=== PATIENT | male | born 1955 | race American Indian/Alaskan Native ===

== ENCOUNTER 2019-09-02 08:09 | Day surgery (SDC) | payer OTHER ==
[~2019-09-02 08:09] MED LIST: LIDOCAINE MPF (2%) 20 MG/1 ML VIAL 5 ML ONE; SODIUM CHLORIDE 0.9% 1000 ML 1,000 ML IV SCH
--- NOTE | 2019-09-02 09:11 | Anesthesia Consultation ---
Anesthesia Consult and Med Hx Date of service: 09/02/19 - Airway Anesthetic Teeth Evaluation: Good ROM Head & Neck: Adequate Mental/Hyoid Distance: Adequate Mallampati Class: Class I Intubation Access Assessment: Good - Pulmonary Exam CTA: Yes - Cardiac Exam Cardiac Exam: RRR - Pre-Operative Health Status ASA Pre-Surgery Classification: ASA2 Proposed Anesthetic Plan: MAC - Pulmonary Hx Smoking: No Hx Sleep Apnea: No - Cardiovascular System Hx Hypertension: Yes Hx Cardia Arrhythmia: No - Central Nervous System Hx Neuromuscular Disorder: No Hx Back Pain: Yes - Gastrointestinal Hx Gastroesophageal Reflux Disease: Yes - Endocrine Hx Renal Disease: No Hx Thyroid Disease: No - Other Systems Hx Alcohol Use: Yes (Every other day) Hx Obesity: Yes - Additional Comments Anesthesia Medical History Comments: Patient denied previous anesthesia complications
--- NOTE | 2019-09-02 09:12 | Anesthesia Day of Surgery ---
Anesthesia Day of Surgery - Day of Surgery Patient Examined: Yes Patient H&P Reviewed: Yes Patient is NPO: Yes
[2019-09-02] MEDS ORDERED: PROPOFOL 200 MG/20 ML VIAL IV ONE ×2 (09:15)
[2019-09-02] MEDS ORDERED: fentaNYL 100 MCG/2 ML INJ ONE (09:15)
--- NOTE | 2019-09-02 09:51 | Operative Report ---
PROCEDURE: Esophagogastroduodenoscopy with biopsy. INDICATIONS: This is a 64-year-old -[place] gentleman with an underlying history of hypertension, who has been having GERD symptoms. EGD was done for the presence of any significant upper GI pathology. DESCRIPTION OF PROCEDURE: Procedure was done after getting informed consent with MAC anesthesia. Instrument was passed through the hypopharynx into the esophagus, which showed mild to moderate erosive esophagitis. Biopsy was done from the distal esophagus. The stomach showed a moderate hiatal hernia and some gastric erosion in the proximal stomach. Biopsy was done from the gastric antrum, gastric body and angular incisura to rule out for H. pylori and atrophic gastritis. The pylorus is patent. The duodenum in the first and second portion appeared normal. ASSESSMENT: Gastroesophageal reflux disease symptoms, moderate hiatal hernia, mild to moderate erosive esophagitis, gastric erosion, gastritis. PLAN: Treat the patient with PPI. I advised the patient about lifestyle changes because of his hiatal hernia. Have the patient avoid aspirin and aspirin-related products and anticoagulants for the next 4 days, otherwise resume home medication. A colonoscopy will be done as part of colon polyp screening. The patient will be asked to follow up in the office in 1-2 weeks' time. Procedure was done in the GI lab with assistance of the GI lab team, which included INNA Hay, rossy Kirby and with assistance of Anesthesia. JOB# [id number] SONDRA/BRENNA
--- NOTE | 2019-09-02 09:54 | Procedure Note ---
Date of procedure: 09/02/19 Pre-op diagnosis: GERD/Colon Polyp Screening Post-op diagnosis: other (Moderate,Hiatal Hernia/ Mild to Moderate Erosive Esophagitis/Gastric Erosion and Gastritis/ No colon Polyp or Diverticular Disease noted/ Normal Ileal Mucosa/ Minor,Internal Hemorrhoid) Procedure: EGD with Biopsy and Colonoscopy Anesthesia: NOLAN Surgeon: SABINA MERRITT Estimated blood loss: minimal Specimen disposition: to lab Condition: stable Disposition: same day (Treat with PPI and advice about lifestyle changes (as the patient has an Hiatal Hernia). Avoid aspirin and NSAID for 4 days; otherwise resume home medication and follow up in 1 to 2 weeks ([phone]).)
--- NOTE | 2019-09-02 09:54 | Operative Report ---
PROCEDURE: Colonoscopy. INDICATIONS: This is a 64-year-old -[place] gentleman with an underlying history of hypertension, who had an EGD done prior to the colonoscopy that showed presence of a moderate hiatal hernia, mild to moderate erosive esophagitis, gastric erosion and gastritis. Colonoscopy was done as part of colon polyp screening. DESCRIPTION OF PROCEDURE: The procedure was done with MAC anesthesia. Initial rectal exam was unremarkable. Instrument was passed through the rectum onto the cecum, which was identified with ileocecal valve and the appendiceal orifice. Visualization was fair to good. The terminal ileum was intubated, showed normal mucosa. The cecum was also examined on the retroverted view and no additional pathology was noted. Cecum, ascending colon, transverse colon, descending colon and sigmoid showed normal mucosa. There was no evidence of any polyps, colitis or diverticular disease and the rectum showed minor internal hemorrhoid on the retroverted view. There was no bleeding associated with the procedure. No complications associated with the procedure. ASSESSMENT: Colon polyp screening, normal colon mucosa. No colon polyps or diverticula noted. Normal ileal mucosa. Minor internal hemorrhoid. PLAN: To treat the patient with PPI because of the EGD findings of esophagitis and gastritis and advised the patient about lifestyle changes because of the hiatal hernia. Resume home medication, but avoid aspirin and aspirin-related products for the next 4 days and follow up in the office in 1-2 weeks' time. The procedure was done in the GI lab with assistance of the GI lab team, which included Bharti KEITH with client technologies specialist and with assistance of Anesthesia. JOB# [id number] SONDRA/BRENNA
[2019-09-02 10:24] VITALS: BP 118/73
--- NOTE | 2019-09-02 11:34 | Post Anesthesia Evaluation ---
- Post Anesthesia Evaluation Patient Participated: Yes Airway Patent: Yes Stable Respiratory Function: Yes Nausea/Vomiting: No Temp > 96.8F: Yes Pain Manageable: Yes Adequeate Hydration: Yes Anesthesia Complications: No Block Receding Appropriately: Not Applicable Patient on Ventilator: No
== END 2019-09-02 08:10 | disposition home or self-care (01) ==
LOC: GIO 08:09
DX: Z12.11 Encounter for screening for malignant neoplasm of colon (principal); K64.8 Other hemorrhoids; K21.0 Gastro-esophageal reflux disease with esophagitis; I10 Essential (primary) hypertension; K29.50 Unspecified chronic gastritis without bleeding; K44.9 Diaphragmatic hernia without obstruction or gangrene; E66.9 Obesity, unspecified; Z79.899 Other long term (current) drug therapy; Z68.30 Body mass index [BMI] 30.0-30.9, adult; Z72.89 Other problems related to lifestyle
CPT/HCPCS: 43239; 45378; 88305; 88342; J2704; J3010; J7030